=== PATIENT | female | born 1990 | race Caucasian/White ===

== ENCOUNTER 2017-10-11 07:41 | Emergency (ER) | payer OTHER ==
[2017-10-11 08:25] LABS: Bilirubin Negative (Negative); Blood, Urine Negative (Negative); Glucose, Urine (Dipstick) Negative (Negative); Ketone, Urine Negative (Negative); Nitrite Negative (Negative); Protein, Urine (Dipstick) Negative (Neg-Trace); Urobilinogen 0.2 mg/dL (0.2-1.0)
[2017-10-11 08:28] LABS: #Basophils 0.1 thou/uL (0.0-0.2); #Eosinphils 0.3 thou/uL (0.0-0.7); #Lymphocytes 1.6 thou/uL (1.20-3.40); #Monocytes 0.7 thou/uL (0.11-0.59); #Neutrophils 7.4 thou/uL (1.40-6.50); %Basophils 0.9 % (0.0-1.0); %Eosinophils 2.8 % (0.0-10.0); %Lymphocytes 15.9 % (21.0-51.0); %Monocytes 7.3 % (0.0-10.0); Hematocrit 42.3 % (36.0-47.0); Mean Platelet Volume 7.2 fL (7.4-10.4); Red Blood Cell (RBC) Count 4.62 mill/uL (4.20-5.40); White Blood Cell (WBC) Count 10.1 thou/uL (4.8-10.8)
[2017-10-11] MEDS ORDERED: Ondansetron HCl/PF 4 MG/2 ML Vial ONE (08:36)
[2017-10-11 08:51] LABS: ALT (SGPT) 55 U/L (8-55); AST (SGOT) 35 U/L (5-34); Alkaline Phosphatase 106 U/L (40-150); Anion Gap 15 mmol/L (10-20); BUN (Urea Nitrogen) 9 mg/dL (7.0-18.7); Bilirubin, Total 0.3 mg/dL (0.2-1.2); Calc. Creatinine Clearance 0 mL/min (70-130); Calcium 9.4 mg/dL (7.8-10.44); Carbon Dioxide 21 mmol/L (22-29); Chloride 106 mmol/L (98-107); Estimated GFR-MDRD 90; Globulin 3.3 g/dL (2.4-3.5); Lipase 32 U/L (8-78); Protein, Total 7.4 g/dL (6.0-8.3)
== END 2017-10-11 09:09 | disposition home or self-care (01) ==
LOC: ERS 07:41
DX: R11.2 Nausea with vomiting, unspecified (principal); R19.7 Diarrhea, unspecified
CPT/HCPCS: 80053; 81003; 81025; 83690; 85025; 96361; 96374; J2405

== ENCOUNTER 2018-04-03 16:58 | Emergency (ER) | payer OTHER ==
[2018-04-03] MEDS ORDERED: Silver Sulfadiazine 1% Cream 50 GM JAR ONE (19:11)
== END 2018-04-03 19:31 | disposition home or self-care (01) ==
LOC: ERS 16:58
DX: L55.1 Sunburn of second degree (principal)
CPT/HCPCS: 16020